=== PATIENT | female | born 1940 | race Asian ===

== ENCOUNTER → 2023-07-21 14:42 | Outpatient (REF) | payer MEDICARE, OTHER, SELFPAY | LOC: DHCBC HW 14:42 | PROVIDERS: ATTENDING PHYSICIAN Nurse Practitioner; FAMILY PHYSICIAN Family Medicine | DX: R06.09 Other forms of dyspnea (principal) | CPT/HCPCS: 93306 ==

== ENCOUNTER → 2023-07-23 06:35 | Outpatient (REF) | payer MEDICARE, OTHER, SELFPAY ==
[2023-07-23] MEDS: LEXISCAN 0.400000000000000022 MG IV (08:51)
[2023-07-23] MEDS: AMINOPHYLLINE 75 MG IV (09:30)
== END ==
LOC: RCS 06:35
PROVIDERS: ATTENDING PHYSICIAN Nurse Practitioner; FAMILY PHYSICIAN Family Medicine
DX: R06.09 Other forms of dyspnea (principal)
CPT/HCPCS: 78452; 93017; A9500; J2785

== ENCOUNTER → 2024-06-19 08:06 | Outpatient (REF) | payer MEDICARE, OTHER, SELFPAY | LOC: MRI 08:06 | PROVIDERS: ATTENDING PHYSICIAN Family Medicine | DX: R42 Dizziness and giddiness (principal); R26.9 Unspecified abnormalities of gait and mobility | CPT/HCPCS: 70553; A9575 ==

== ENCOUNTER → 2024-08-30 13:29 | Outpatient (REF) | payer MEDICARE, OTHER, SELFPAY | LOC: WDC 13:29 | PROVIDERS: ATTENDING PHYSICIAN Family Medicine | DX: M81.0 Age-related osteoporosis without current pathological fracture (principal); Z12.31 Encounter for screening mammogram for malignant neoplasm of breast | CPT/HCPCS: 77063; 77067; 77080 ==

== ENCOUNTER → 2024-09-21 07:31 | Outpatient (REF) | payer MEDICARE, OTHER, SELFPAY | LOC: RAD 07:31 | PROVIDERS: ATTENDING PHYSICIAN Family Medicine | DX: M25.562 Pain in left knee (principal); M25.561 Pain in right knee; Z11.1 Encounter for screening for respiratory tuberculosis | CPT/HCPCS: 71046; 73502; 73564 ==